=== PATIENT | male | born 2000 | race Caucasian/White ===

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

== ENCOUNTER 2021-04-25 08:05 | Emergency (ER) | payer BC ==
[~2021-04-25] VITALS: Ht 182.9 cm; Wt 65.8 kg
[2021-04-25 08:11] VITALS: BP_SYST 142
[2021-04-25] MEDS ORDERED: KETOROLAC TROMETHAMINE 30 MG VIAL IM ONE (08:15)
[2021-04-25] MEDS ORDERED: IBUP-1969 PO (08:17)
[2021-04-25 08:46] VITALS: BP_SYST 128
== END 2021-04-25 08:44 | disposition home or self-care (01) ==
LOC: SED 08:05
DX: S43.004A Unspecified dislocation of right shoulder joint, initial encounter (principal); W18.39XA Other fall on same level, initial encounter; Y93.89 Activity, other specified; Y92.89 Other specified places as the place of occurrence of the external cause; Y99.8 Other external cause status
CPT/HCPCS: 23650; 73030; 96372; 99284; J1885; 99283

== ENCOUNTER 2021-04-26 02:35 | Emergency (ER) | payer BC ==
[~2021-04-26] VITALS: Ht 182.9 cm; Wt 65.8 kg
[~2021-04-26 02:35] MED LIST: IBUP-1969 PO
[2021-04-26 03:24] VITALS: BP_SYST 149
[2021-04-26] MEDS ORDERED: KETOROLAC TROMETHAMINE 60 MG/2 ML VIAL IM ONE (04:00)
[2021-04-26 05:16] VITALS: BP_SYST 127
== END 2021-04-26 04:45 | disposition home or self-care (01) ==
LOC: SED 02:35
DX: S44.31XA Injury of axillary nerve, right arm, initial encounter (principal); Z79.1 Long term (current) use of non-steroidal anti-inflammatories (NSAID); X58.XXXA Exposure to other specified factors, initial encounter; Y93.89 Activity, other specified; Y92.89 Other specified places as the place of occurrence of the external cause; Y99.8 Other external cause status
CPT/HCPCS: 73030; 96372; 99283; J1885